=== PATIENT | female | born 1980 | race Caucasian/White ===

== ENCOUNTER → 2023-12-11 10:11 | Outpatient (REF) | payer BC, SELFPAY | LOC: RAD 10:11 | PROVIDERS: ATTENDING PHYSICIAN Hospitalist | DX: R00.2 Palpitations (principal) | CPT/HCPCS: 73560 ==

== ENCOUNTER → 2024-05-06 14:17 | Outpatient (REF) | payer BC, SELFPAY | LOC: HWRAD 14:17 | PROVIDERS: ATTENDING PHYSICIAN Hospitalist | DX: R10.11 Right upper quadrant pain (principal) | CPT/HCPCS: 76700 ==

== ENCOUNTER 2024-12-22 06:16 | Day surgery (SDC) | payer BC, SELFPAY | END 2024-12-22 09:26 | disposition home or self-care (01) | LOC: GI 06:16 | PROVIDERS: ATTENDING PHYSICIAN Internal Medicine | DX: Z12.11 Encounter for screening for malignant neoplasm of colon (principal); K57.30 Diverticulosis of large intestine without perforation or abscess without bleeding; D12.3 Benign neoplasm of transverse colon; D12.5 Benign neoplasm of sigmoid colon; K63.5 Polyp of colon | CPT/HCPCS: 45385; 45380; 88305 ==